=== PATIENT | female | born 1990 | race Caucasian/White ===

== ENCOUNTER 2017-02-14 17:02 | Emergency (ER) | payer OTHER ==
--- NOTE | 2017-02-14 18:27 | RADIOLOGY REPORT (SQ) ---
EXAM DESCRIPTION: FOREARM RIGHT COMPLETED DATE/TIME: 02/14/2017 6:18 pm REASON FOR STUDY: Rt hand/forearm crush injury COMPARISON: None. NUMBER OF VIEWS: Two views. TECHNIQUE: Two radiographic images acquired of the right forearm, including elbow and wrist in at le ast one projection. LIMITATIONS: None. FINDINGS: MINERALIZATION: Normal. BONES: No acute fracture. No worrisome bone lesions. SOFT TISSUES: No obvious swelling or foreign body. OTHER: No other significant finding. IMPRESSION: NEGATIVE STUDY OF THE RIGHT FOREARM. NO RADIOGRAPHIC EVIDENCE OF ACUTE INJURY. TECHNICAL DOCUMENTATION: JOB ID: [id number] [employer]- All Rights Reserved
--- NOTE | 2017-02-14 18:28 | RADIOLOGY REPORT (SQ) ---
EXAM DESCRIPTION: HAND RIGHT 3 VIEWS COMPLETED DATE/TIME: 02/14/2017 6:18 pm REASON FOR STUDY: Rt hand/forearm crush injury COMPARISON: None. EXAM PARAMETERS: NUMBER OF VIEWS: Three views. TECHNIQUE: AP, lateral and oblique radiographic images acquired of the right hand. LIMITATIONS: None. FINDINGS: MINERALIZATION: Normal. BONES: No acute fracture or dislocation. No worrisome bone lesions. JOINTS: No effusions. SOFT TISSUES: No soft tissue swelling. No foreign body. OTHER: No other significant finding. IMPRESSION: NEGATIVE STUDY OF THE RIGHT HAND. NO RADIOGRAPHIC EVIDENCE OF ACUTE INJURY. TECHNICAL DOCUMENTATION: JOB ID: [id number] [employer]- All Rights Reserved
--- NOTE | 2017-02-14 18:39 | ER Document Report ---
HPI - HPI Pain Level: 5 Notes: Patient is a 26-year-old female presents to the ED complaining of right arm pain status post crush injury by drainage great 1 week. Patient states this happened while she was at work. Patient continues to have pain to her forearm and in her hand along with numbness and tingling in each of her fingers. Patient states that she is unable to move her thumb. She has not been able to float builder as tightly in the right hand when compared to left. She did take some ibuprofen with minimal relief. Patient states that the swelling has come down since the onset of the incident. She was evaluated by [facility], urgent care, 5 days ago and had an x-ray of her forearm wrist and hand which were all negative. The pain does not radiate proximally from the forearm. She still eating and drink without any problems. Patient does smoke. No known medicine allergies. She does not take any medications daily. No significant past medical history. Denies any fever, headaches, URI, sore throat, chest pain, palpitations, shortness of breath, dyspnea, abdominal pain, nausea/vomiting/ diarrhea, dysuria, hematuria or rash. - ROS Notes: REVIEW OF SYSTEMS: CONSTITUTIONAL : Denies fever, chills, or sweats. Denies recent illness. EENT: Denies eye, ear, throat, or mouth pain or symptoms. Denies nasal or sinus congestion or discharge. Denies throat, tongue, or mouth swelling or difficulty swallowing. CARDIOVASCULAR: Denies chest pain. Denies palpitations or racing or irregular heart beat. Denies ankle edema. RESPIRATORY: Denies cough, cold, or chest congestion. Denies shortness of breath, difficulty breathing, or wheezing. GASTROINTESTINAL: Denies abdominal pain or distention. Denies nausea, vomiting , or diarrhea. Denies blood in vomitus, stools, or per rectum. Denies black, tarry stools. Denies constipation. GENITOURINARY: Denies difficulty urinating, painful urination, burning, frequency, blood in urine, or discharge. MUSCULOSKELETAL: see hpi SKIN: see hpi NEUROLOGICAL: see hpi ALL OTHER SYSTEMS REVIEWED AND NEGATIVE. Dictation was performed using [employer] voice recognition software - REPRODUCTIVE Reproductive: DENIES: : - DERM Skin Color: Normal Past Medical History - Social History Smoking Status: Current Every Day Smoker Family History: Reviewed & Not Pertinent Patient has suicidal ideation: No Patient has homicidal ideation: No Renal/ Medical History: Reports: Hx Ovarian Cysts. Denies: Hx Peritoneal Dialysis Past Surgical History: Reports: Hx Section - Immunizations Immunizations up to date: Yes Hx Diphtheria, Pertussis, Tetanus Vaccination: Yes Vertical Provider Document - CONSTITUTIONAL Notes: PHYSICAL EXAMINATION: GENERAL: Well-appearing, well-nourished and in no acute distress. LUNGS: Breath sounds clear to auscultation bilaterally and equal. No wheezes rales or rhonchi. HEART: Regular rate and rhythm without murmurs, rubs, gallops. Musculoskeletal: Rt forearm: + erythema, ecchymosis noted to the anterior/ posterior forearm and posterior hand. LROM to active. FROM to passive movements by myself. Strength 3-4+/5 to fingers/wrist. Pt did not move her thumb. + dec in light touch to the each finger. Tissue palpated feels soft with low suspicion for compartment syndrome. 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 FROM to the elbow for both passive/active. + tenderness to palpation of the mid-distal 1 /3 radius/ulna and of the wrist and metacarpals. Cap refill <3 secs. Good pulse 2+ and vascular flow. Extremities: No cyanosis, clubbing, or edema b/l. Peripheral pulses 2+. Capillary refill less than 3 seconds. PSYCH: Normal mood, normal affect. SKIN: ecchymosis as noted above with mild abrasion to mid forearm. - INFECTION CONTROL TRAVEL OUTSIDE OF THE [place] IN LAST 30 DAYS: No - RESPIRATORY O2 Sat by Pulse Oximetry: 97 Course - Re-evaluation Re-evalutation: 02/14/17 19:[address] Spicer who also did a brief eval with the patient: Pt is an afebrile, well-hydrated, 26yo female who presents with contusions, soft tissue injury, to the rt forearm/hand. XR's were negative for any acute fracture/dislocation. Pt may have a nerve palsy s/p injury which may be causing some her subjective symptoms. Dr. Spicer was able to elicit more strength from the patient than she wanted to lead on during his evaluation. Vitals are stable. PE unremarkable for emergent condition of systemic infection , cellulitis, compartment syndrome. Volar wrist splint placed. Conservative measures for symptoms. Recheck with PCM in 2-3 days. If ongoing symptoms, consider consult with orthopedics/hand specialist. Return to the ED with any worsening symptoms otherwise as reviewed in discharge. Pt in agreement. - Vital Signs Vital signs: Temp Pulse Resp BP Pulse Ox 98.5 F 75 16 122/82 97 02/14/17 17:06 02/14/17 17:06 02/14/17 17:06 02/14/17 17:06 02/14/17 17:06 Procedures - Immobilization Right Wrist Time completed: 19:20 Pre-Proc Neuro Vasc Exam: Normal Immobilizer type: Volar splint Performed by: PCT Post-Proc Neuro Vasc Exam: Normal Discharge - Discharge Clinical Impression: Arm pain Qualifiers: Laterality: right Qualified Code(s): M79.601 - Pain in right arm Crush injury arm Qualifiers: Encounter type: initial encounter Laterality: right Qualified Code(s): S47.1XXA - Crushing injury of right shoulder and upper arm, initial encounter Hand pain Qualifiers: Laterality: right Qualified Code(s): M79.641 - Pain in right hand Condition: Stable Disposition: HOME, SELF-CARE Additional Instructions: Your 2nd set of XR's were negative, which give us a good idea that no fracture was missed from the initial imaging Rest, Ice, Compression, Elevation Use splint as directed Tylenol/ibuprofen as needed Light stretches daily Strength exercises as able Moist heat and massage may help F/u with your PCP in 2-3 days for a recheck Consider consult(s) with Orthopedics/Hand-specialist for ongoing/worsening symptoms Return to the ED with any worsening symptoms and/or development of fever, headache, chest pain, palpitations, syncope, shortness of breath, trouble breathing, abdominal pain, n/v/d, blood in stool/urine, urinary retention, muscle weakness/paralysis, abscess, purulent discharge, or other worsening symptoms that are concerning to you. Referrals: AVERY SANDOVAL DO [ACTIVE STAFF] - Follow up as needed [facility] [Provider Group] - Follow up as needed
[2017-02-14 19:27] VITALS: BP 123/67
== END 2017-02-14 19:25 | disposition home or self-care (01) ==
LOC: ER 17:02
PROC: 2W3CX1Z Immobilization of Right Lower Arm using Splint (ICD-10-PCS; principal; 2017-02-14)
DX: S47.1XXA Crushing injury of right shoulder and upper arm, initial encounter (principal); S50.11XA Contusion of right forearm, initial encounter; S60.221A Contusion of right hand, initial encounter; W20.8XXA Other cause of strike by thrown, projected or falling object, initial encounter; Y99.0 Civilian activity done for income or pay; M79.631 Pain in right forearm; M79.641 Pain in right hand; R20.2 Paresthesia of skin; F17.200 Nicotine dependence, unspecified, uncomplicated
CPT/HCPCS: 99283